=== PATIENT | female | born 1980 | race Caucasian/White ===

== ENCOUNTER 2018-05-15 08:46 | Emergency (ER) | payer BC ==
--- NOTE | 2018-05-15 09:10 | ER Report ---
History and Physical Time Seen By MD: 09:00 Hx. of Stated Complaint: pt having vag bleeding, x 2 days, getting heavier. Now starting to get lightheaded and still bleeding heavily. dx with fibroids recently HPI/ROS CHIEF COMPLAINT: Abnormal vaginal bleeding HISTORY OF PRESENT ILLNESS: 38-year-old female G2 para 2 comes emergency Department today with increased vaginal bleeding associated menses. Patient had had a recent ultrasound the last 2 weeks demonstrating large intrauterine fibroids and she has had a long history of fibroids and menorrhagia and metromenorrhagia with increased bleeding she said the last 2 days she soaked through multiple pads and tampons she said it's more than what she is used to and she was concerned she also says she felt a little lightheaded when she stood up quickly. Patient denies being but is no longer and has not been on control pills for quite some time. Patient has no other significant medical history denies fever chills or sweats nausea vomiting diarrhea or additional complaints she has no abdominal plain REVIEW OF SYSTEMS: Respiratory: No cough, no dyspnea. Cardiovascular: No chest pain, no palpitations. Gastrointestinal: No vomiting, no abdominal pain. Musculoskeletal: No back pain. Remainder of the 14 system rev: Yes Allergies: Coded Allergies: levofloxacin (Verified Allergy, Unknown, 05/15/18) Home Meds No Active Prescriptions or Reported Meds Reviewed Nurses Notes: Yes Old Medical Records Reviewed: Yes Hx Substance Use Disorder: No Hx Alcohol Use: No Constitutional Vital Sign - Last 24 Hours 05/15/18 05/15/18 05/15/18 05/15/18 08:50 08:52 09:00 09:01 Temp 97.5 Pulse 98 90 Resp 20 B/P (MAP) 137/87 137/87 (104) 118/67 (84) Pulse Ox 97 96 O2 Delivery Room Air 05/15/18 05/15/18 05/15/18 05/15/18 09:06 09:11 09:16 09:19 Pulse 86 97 88 B/P (MAP) 108/72 (84) Pulse Ox 95 94 96 05/15/18 05/15/18 05/15/18 05/15/18 09:20 09:21 09:26 09:26 Pulse 86 B/P (MAP) 119/83 (95) 113/87 (96) 108/72 (84) 118/83 (95) 113/87 (96) Pulse Ox 95 94 05/15/18 05/15/18 09:30 09:31 Pulse 83 B/P (MAP) 108/83 (91) Pulse Ox 94 Physical Exam General Appearance: The patient is alert, has no immediate need for airway protection and no current signs of toxicity. [ ] Eyes: Pupils equal and round no injection. Respiratory: Chest is non tender, lungs are clear to auscultation. Cardiac: regular rate and rhythm [ ] Gastrointestinal: Abdomen is soft and non tender, no masses, bowel sounds normal. Musculoskeletal: Neck: Neck is supple and non tender. Extremities have full range of motion and are non tender. Skin: No rashes or lesions. [ ] DIFFERENTIAL DIAGNOSIS: After history and physical exam differential diagnosis was considered for metromenorrhagia menorrhagia 2 anemia Medical Decision Making Data Points Result Diagram: 05/15/18 0900 05/15/18 0900 Laboratory Hematology Test 05/15/18 09:00 05/15/18 09:16 Red Blood Count 5.06 M/uL (4.17-5.56) Mean Corpuscular Volume 93.2 fL (80.0-96.0) Mean Corpuscular Hemoglobin 32.4 pg (26.0-33.0) Mean Corpuscular Hemoglobin Concent 34.8 g/dL (32.0-36.0) Red Cell Distribution Width 13.2 % (11.5-14.5) Mean Platelet Volume 9.8 fL (7.2-11.1) Neutrophils (%) (Auto) 55.3 % (39.4-72.5) Lymphocytes (%) (Auto) 32.7 % (17.6-49.6) Monocytes (%) (Auto) 8.8 % (4.1-12.4) Eosinophils (%) (Auto) 2.4 % (0.4-6.7) Basophils (%) (Auto) 0.8 % (0.3-1.4) Nucleated RBC Relative Count (auto) 0.1 /100WBC Neutrophils # (Auto) 2.7 K/uL (2.0-7.4) Lymphocytes # (Auto) 1.6 K/uL (1.3-3.6) Monocytes # (Auto) 0.4 K/uL (0.3-1.0) Eosinophils # (Auto) 0.1 K/uL (0.0-0.5) Basophils # (Auto) 0.0 K/uL (0.0-0.1) Nucleated RBC Absolute Count (auto) 0.00 K/uL Peripheral Blood Smear No Y/N Sodium Level 140 mmol/L (137-145) Potassium Level 3.5 mmol/L (3.5-5.0) Chloride Level 104 mmol/L (98-107) Carbon Dioxide Level 24 mmol/L (22-31) Blood Urea Nitrogen 12 mg/dl (7-18) Creatinine 0.80 mg/dl (0.52-1.04) Glomerular Filtration Rate Calc > 60.0 Random Glucose 114 mg/dl (75-110) Calcium Level 9.1 mg/dl (8.4-10.2) Total Bilirubin 0.4 mg/dl (0.2-1.3) Aspartate Amino Transf (AST/SGOT) 36 U/L (0-35) Alanine Aminotransferase (ALT/SGPT) 20 U/L (0-56) Alkaline Phosphatase 51 U/L (0-126) Total Protein 6.7 g/dl (6.3-8.2) Albumin 4.4 g/dl (3.5-5.0) Prothrombin Time 13.5 seconds (12.0-14.4) Prothromb Time International Ratio 1.03 Activated Partial Thromboplast Time 31 seconds (23-35) Chemistry Test 05/15/18 09:00 05/15/18 09:16 White Blood Count 4.9 k/uL (4.5-11.0) Red Blood Count 5.06 M/uL (4.17-5.56) Hemoglobin 16.4 g/dL (12.0-16.0) Hematocrit 47.1 % (34.0-47.0) Mean Corpuscular Volume 93.2 fL (80.0-96.0) Mean Corpuscular Hemoglobin 32.4 pg (26.0-33.0) Mean Corpuscular Hemoglobin Concent 34.8 g/dL (32.0-36.0) Red Cell Distribution Width 13.2 % (11.5-14.5) Platelet Count 165 K/uL (150-450) Mean Platelet Volume 9.8 fL (7.2-11.1) Neutrophils (%) (Auto) 55.3 % (39.4-72.5) Lymphocytes (%) (Auto) 32.7 % (17.6-49.6) Monocytes (%) (Auto) 8.8 % (4.1-12.4) Eosinophils (%) (Auto) 2.4 % (0.4-6.7) Basophils (%) (Auto) 0.8 % (0.3-1.4) Nucleated RBC Relative Count (auto) 0.1 /100WBC Neutrophils # (Auto) 2.7 K/uL (2.0-7.4) Lymphocytes # (Auto) 1.6 K/uL (1.3-3.6) Monocytes # (Auto) 0.4 K/uL (0.3-1.0) Eosinophils # (Auto) 0.1 K/uL (0.0-0.5) Basophils # (Auto) 0.0 K/uL (0.0-0.1) Nucleated RBC Absolute Count (auto) 0.00 K/uL Peripheral Blood Smear No Y/N Glomerular Filtration Rate Calc > 60.0 Calcium Level 9.1 mg/dl (8.4-10.2) Total Bilirubin 0.4 mg/dl (0.2-1.3) Aspartate Amino Transf (AST/SGOT) 36 U/L (0-35) Alanine Aminotransferase (ALT/SGPT) 20 U/L (0-56) Alkaline Phosphatase 51 U/L (0-126) Total Protein 6.7 g/dl (6.3-8.2) Albumin 4.4 g/dl (3.5-5.0) Prothrombin Time 13.5 seconds (12.0-14.4) Prothromb Time International Ratio 1.03 Activated Partial Thromboplast Time 31 seconds (23-35) Coagulation Test 05/15/18 09:16 Prothrombin Time 13.5 seconds Prothromb Time International Ratio 1.03 Activated Partial Thromboplast Time 31 seconds ED Course/Re-evaluation ED Course ED clinical course 38-year-old female presents with menorrhagia concerned of menorrhagia 2 anemia however hemoglobin is greater than 16 she is on iron supplementation she had orthostatics which were done showed a slight bump in her heart rate give a liter fluid she's resolved she is asymptomatic otherwise coags were negative she's had a recent ultrasound no indication to do a further 1 she's traveling back home she is safe to do so she is following up in the next 10 days with her METEOROLOGIST LIAISON considering hysterectomy is definitive course of care Decision to Disposition Date: May 15, 2018 Decision to Disposition Time: 09:51 Depart Departure Latest Vital Signs Vital Signs Date Time Temp Pulse Resp B/P (MAP) Pulse Ox O2 Delivery O2 Flow Rate FiO2 05/15/18 09:31 83 94 05/15/18 09:30 108/83 (91) 05/15/18 08:50 97.5 20 Room Air Impression: Primary Impression: Menorrhagia Condition: Improved Disposition: HOME OR SELF-CARE Referrals: VAISHALI CRAWFORD MD 10 Days New Scripts No Active Prescriptions or Reported Meds Patient Instructions: Menorrhagia (ED) MARYSE PARR MD May 15, 2018 09:10
[2018-05-15 09:14] LABS: PLATELET COUNT, AUTOMATED 165 K/uL (150-450)
[2018-05-15 09:41] LABS: INR 1.03
[2018-05-15] MEDS ORDERED: NS(*) 0.9% 1000 ML BAG 1,000 ML IV ONE (09:50)
[2018-05-15 10:00] VITALS: BP 105/60
== END 2018-05-15 10:25 | disposition home or self-care (01) ==
LOC: ER 08:50
DX: N92.0 Excessive and frequent menstruation with regular cycle (principal)
CPT/HCPCS: 36415; 84702; 85025; 85610; 85730; 86850; 86900; 86901; 96360; 99283; J7030; 82040; 82247; 82310; 82374; 82435; 82565; 82947; 84075; 84132; 84155; 84295; 84450; 84460; 84520